=== PATIENT | male | born 1960 | race Caucasian/White ===

== ENCOUNTER 2016-11-22 13:52 | Day surgery (SDC) | payer OTHER ==
[~2016-11-22] VITALS: Ht 177.8 cm; Wt 102.3 kg
[~2016-11-22 13:52] MED LIST: 0.9% Sodium Chloride 1,000 ML IV SCH; FLUO20CA25 PO; HYDR-656 PO; IBUP-1827 PO; S-AD200T PO; Sodium Chloride LOK Flush 10 mL Syringe IV PRN; fentaNYL-PF 50 mCg/mL 2 mL Inj IVPUSH PRN
[2016-11-22 15:06] VITALS: BP 145/86; PULSE 66; RESP 16; O2SAT 97
[2016-11-22 17:03] VITALS: BP 156/91; PULSE 58; RESP 16; O2SAT 98
--- NOTE | 2016-11-22 18:53 | ENDO ---
[address] [address] ENDOSCOPY PROCEDURE PATIENT: NICOLE MUNOZ : 1960 MR#: [id number] ADMIT: 11/22/2016 JOB ID: [id number] DATE: 11/22/2016 PROCEDURE: Colonoscopy. INDICATIONS: Screening. ASA CLASSIFICATION: II MALLAMPATI SCORE: 2 MEDICATIONS: None. INSTRUMENT USED: [id number]-[id number]. PREP QUALITY: Good. PROCEDURE DETAILS: After informed consent was obtained, the patient was brought into the GI suite where he was placed on oxygen via nasal cannula and monitored with continuous pulse oximeter, telemetry, and blood pressure monitoring. A time-out was performed. Then, he was placed in a left lateral decubitus position and medications were administered for sedation. Digital rectal exam with palpation of the prostate was performed which was unremarkable. The colonoscope was then inserted into the rectum and advanced under direct visualization to the cecum, which was identified by the presence of the ileocecal valve and appendiceal orifice. Once the cecum was reached, colonoscope was withdrawn back into the rectum as the mucosa and lumen were examined. In the rectum, retroflexion was performed. Following retroflexion, remaining air in the rectum was suctioned, and procedure was completed. FINDINGS: 1. In the transverse colon, there were two polyps ranging in size from approximately 3-4 mm to 5 mm. Both polyps were removed using a cold snare. 2. Retroflexed views in the rectum revealed moderate-sized internal hemorrhoids. IMPRESSION: 1. Two transverse colon polyps. 2. Internal hemorrhoids. RECOMMENDATIONS: 1. Fiber-rich diet. 2. Repeat colonoscopy in five years. COMPLICATIONS: None. ESTIMATED BLOOD LOSS: Less than 5 mL.
--- NOTE | 2016-12-03 15:11 | PATH ---
SURGICAL PATHOLOGY Attending Physician:Marko Jean Baptiste CASE STATUS: Signed Out * Amended * PATIENT NAME: NICOLE MUNOZ PID: [id number] : 1960 DATE COLLECTED:11/22/2016 00:00 SPECIMEN: Colon, Biopsy CLINICAL HISTORY: 1). TRANSVERSE COLON POLYP X2 FINAL DIAGNOSIS: Transverse Colon, Polyps x2, Biopsies: Tubular adenoma; negative for high-grade dysplasia. ICD10 K63.5 This case was reviewed and interpreted by Dr. Silvia Hare. The final diagnosis is unchanged. This amendment is issued in order for the report to cross the interface and be available in the hospital electronic medical record. GROSS DESCRIPTION: The specimen is received in one formalin filled container labeled with the patient's name, sublabeled "transverse colon polyp" and consists of 1 portion of tissue which measures 0.5 x 0.5 x 0.4 CM. The specimen is entirely submitted in one cassette. 11/23/2016 [facility] ICD-9 CODES: CPT CODES: 1: 61310 AMENDMENT(S): Amended: 12/03/2016 by Valarie Meza Reason:Miscellaneous The final diagnosis is unchanged. This amendment is issued in order for the report to cross the interface and be available in the hospital electronic medical record. Previous Signout Date: 11/27/2016 Electronically Signed Out Kemi Gonzalez MD [facility], [place] [address] Technical component performed at [facility], [address] [place] [address] Ave[address], [address]
== END 2016-11-22 23:59 | disposition home or self-care (01) ==
LOC: END 13:52
PROVIDERS: ATTEND Internal Medicine Gastroenterology
DX: Z12.11 Encounter for screening for malignant neoplasm of colon (principal); D12.3 Benign neoplasm of transverse colon; K64.8 Other hemorrhoids
CPT/HCPCS: 45385; 88305; J7030